=== PATIENT | female | born 1945 | race Caucasian/White ===

== ENCOUNTER 2019-02-08 00:33 | Observation (INO) ==
[2019-02-08] MEDS ORDERED: *HR* Dextrose 50 % in Water (Syg) 50 ML SYRINGE IVP PRN (02:23)
[2019-02-08] MEDS ORDERED: Dextrose Gel 15 GM/37.5 ML TUBE PO PRN ×2 (02:23)
[2019-02-08] MEDS ORDERED: Acetaminophen 325 MG TABLET PO PRN (02:23)
[2019-02-08] MEDS ORDERED: D5% in Lactated Ringers 1,000 ML IVC SCH (02:30)
[2019-02-08 04:30] LABS: Calcium 8.8 mg/dL (8.6-10.3); Magnesium 1.6 mg/dL (1.6-2.6); Phosphorous 3.2 mg/dL (2.7-4.5); Potassium 3.7 mEq/L (3.5-5.1); Troponin I 4.34 ng/mL (< 0.04)
[2019-02-08] MEDS ORDERED: Ringers Solution, Lactated 1,000 ML IVC ONE (04:37)
[2019-02-08] MEDS ORDERED: Insulin Human Regular 5 UNIT in 0.9 % Sodium Chloride 10 ML IV ONE (04:38)
[2019-02-08] MEDS ORDERED: Ringers Solution, Lactated 1,000 ML IVC SCH (04:45)
[2019-02-08] MEDS ORDERED: Insulin LISPRO 300 UNITS/3 ML VIAL SQ SCH (06:00)
[2019-02-08] MEDS ORDERED: *HR* Heparin 5,000 UNIT/ML VIAL IVP PRN ×2 (07:57)
[2019-02-08] MEDS ORDERED: *HR* Heparin 5,000 UNIT/ML VIAL IVP ONE (07:57)
[2019-02-08] MEDS ORDERED: Heparin 25,000 UNIT/250 ML D5W 25,000 UNIT/250 ML IV.SOLN IVC SCH (08:00)
[2019-02-08 09:05] LABS: Estimated Average Glucose 128 mg/dl
[2019-02-08 09:09] LABS: Hematocrit 34.6 % (35.3-44.9); Hemoglobin 11.2 g/dL (11.5-15.4); Mean Corpuscular HGB Conc 32.4 g/dL (31.6-35.5); Mean Corpuscular Hemoglobin 27.3 pg (28.0-33.3); Mean Corpuscular Volume 84.4 fL (83.0-100.0); Platelet Count 164 K/mcL (140-400); Red Cell Distribution Width 14.6 % (11.5-14.5); White Blood Count 9.2 K/mcL (4.3-11.1)
[2019-02-08 09:11] LABS: Prothrombin Time 11.4 Seconds (9.4-12.1)
[2019-02-08 09:30] LABS: Troponin I 6.59 ng/mL (< 0.04)
[2019-02-08] MEDS ORDERED: D5% in 0.45% NACL 1,000 ML IVC SCH ×2 (09:30→11:00)
[2019-02-08] MEDS: Pantoprazole 40 MG VIAL IVP SCH (09:55)
[2019-02-08 11:33] LABS: Chol/HDL Ratio 3.8 (0-4.9)
[2019-02-08] MEDS: Insulin LISPRO 300 UNITS/3 ML VIAL SQ SCH ×2 (11:46→19:25)
[2019-02-08] MEDS: Aspirin Enteric Coated 81 MG Tablet PO SCH (13:56)
[2019-02-08] MEDS ORDERED: *HR* Heparin 10,000 UNIT/10 ML VIAL ONE (16:01)
[2019-02-08] MEDS ORDERED: ISOVUE-370 200 ML INFUS..BTL ONE (16:02)
[2019-02-08] MEDS ORDERED: Heparin 1,000 UNITS/500 mL 500 ML ONE (16:02)
[2019-02-08] MEDS ORDERED: Nitroglycerin 1,000 MCG/10 ML VIAL IV ONE (16:02)
[2019-02-08] MEDS ORDERED: 0.9 % Sodium Chloride 1,000 ML ONE ×3 (16:02→16:37)
[2019-02-08] MEDS ORDERED: *HR* Midazolam HCl 2 MG/2 ML VIAL ONE (16:45)
[2019-02-08] MEDS ORDERED: *HR* FentaNYL (PF) 100 MCG/2 ML VIAL ONE (16:45)
[2019-02-08] MEDS ORDERED: rOPINIRole 1 MG TABLET PO SCH (23:18)
[2019-02-09] MEDS: Insulin LISPRO 300 UNITS/3 ML VIAL SQ SCH ×2 (00:18→06:12)
[2019-02-09 05:56] LABS: Hematocrit 33.7 % (35.3-44.9); Hemoglobin 10.8 g/dL (11.5-15.4); Mean Corpuscular Hemoglobin 27.7 pg (28.0-33.3); Mean Corpuscular Volume 86.4 fL (83.0-100.0); Mean Platelet Volume 10.7 fL (9.4-12.4); Platelet Count 157 K/mcL (140-400); Red Cell Distribution Width 14.7 % (11.5-14.5); White Blood Count 6.1 K/mcL (4.3-11.1)
[2019-02-09] MEDS: Pantoprazole 40 MG VIAL IVP SCH (06:22)
[2019-02-09] MEDS: Aspirin Enteric Coated 81 MG Tablet PO SCH ×2 (06:22→06:24)
[2019-02-09 06:28] LABS: BUN/Creatinine Ratio 23 (6-26); Blood Urea Nitrogen 22 mg/dL (8-23); Calcium 8.7 mg/dL (8.6-10.3); Carbon Dioxide 27 mEq/L (23-29); Chloride 104 mEq/L (98-107); Glucose 78 mg/dL (70-105); Osmolality,Calculated 296 (280-300); Potassium 3.4 mEq/L (3.5-5.1); Sodium 142 mEq/L (136-145); eGFR For African Americans > 60 (> 60); eGFR For Non-African Americans 58 (> 60)
[2019-02-09 06:39] VITALS: BP 134/72
== END 2019-02-09 16:50 | disposition home or self-care (01) ==
LOC: 3BNU → SUATTDRO 01:50
PROVIDERS: ADMIT Internal Medicine; ATTEND Family Medicine